=== PATIENT | male | born 1960 | race Caucasian/White ===

== ENCOUNTER 2020-08-29 07:38 | Emergency (ER) | payer BC, OTHER ==
[2020-08-29 09:42] LABS: HEMOGLOBIN 15.9 gm/dl (14.0-17.5); RED BLOOD COUNT 4.85 M/UL (4.20-5.50); WHITE BLOOD COUNT 9.5 K/UL (4.5-11.0)
[2020-08-29 10:10] LABS: BUN/CREATININE RATIO 12 (0-10)
[2020-08-29] MEDS ORDERED: MEDROL4 MG PO (13:49)
== END 2020-08-29 13:55 | disposition left against medical advice (07) ==
LOC: ER1 07:38
PROVIDERS: Physician Assistant
DX: J38.4 Edema of larynx (principal); F17.210 Nicotine dependence, cigarettes, uncomplicated; Z88.0 Allergy status to penicillin
CPT/HCPCS: 70491; 80053; 85025; 96374; 96375; 99284; J1100; J2270; J2405; Q9963

== ENCOUNTER → 2021-12-19 | Outpatient (CLI) | payer BC ==
[~2021-12-19] MED LIST: MEDROL4 MG PO
== END ==
LOC: KOH-I 08:48
DX: F17.210 Nicotine dependence, cigarettes, uncomplicated (principal)
CPT/HCPCS: 71271